=== PATIENT | female | born 1970 | race Caucasian/White ===

== ENCOUNTER 2016-12-20 20:26 | Emergency (ER) | payer OTHER, MEDICAID ==
[2016-12-20 21:42] LABS: % IMMATURE GRANULYOCYTES 0.2 % (0.0-1.1); ABSOLUTE IMMATURE GRANULOCYTES 0.02 10^3/uL (0.00-0.10); ADD DIFF? NO; ADD MORPH? NO; ADD SCAN? NO; ATYPICAL LYMPHOCYTE FLAG 0 (0-99); FRAGMENT RBC FLAG 0 (0-99); HEMATOCRIT 45.7 % (38.0-47.0); HEMOGLOBIN 15.4 g/dL (12.6-16.3); LEFT SHIFT FLG 0 (0-99); LIPEMIA HEMOLYSIS FLAG 80 (0-99); MEAN CELL HEMOGLOBIN 29.7 pg (27.9-34.1); MEAN CELL HEMOGLOBIN CONCENTR. 33.7 g/dL (32.4-36.7); MEAN CELL VOLUME 88.2 fL (81.5-99.8); MEAN PLATELET VOLUME 8.6 fL (8.7-11.7); PLATELET CLUMPS FLAG 0 (0-99); PLATELET COUNT 297 10^3/uL (150-400); RED BLOOD CELL COUNT 5.18 10^6/uL (4.18-5.33); RED CELL DISTRIBUTION WIDTH 14.4 % (11.5-15.2)
--- NOTE | 2016-12-20 21:49 | EDPHY ---
Mental Health General Previous Psychiatric History: previous inpatient psychiatric admission Smoking Status: Never smoked Time Patient Placed on Detainer: 21:30 Time Medically Cleared for Psychiatric Evaluation: 22:00 Time of Transfer of Care: 01:[address] To [address]:: Finesse Course: patient remained stable over course of my shift, no additional interventions Narrative: CHIEF COMPLAINT: suicidal ideations HISTORY OF PRESENT ILLNESS: 46-year-old female presents emergency department complaining of suicidal ideations worsening over the last couple days. Patient reports feeling suicidal in the past. She reports multiple hospitalizations. Patient states she has plans to overdose or shoot herself with her nieces gun who lives in [place]. Patient reports her 1 year ago, she went to his grave today which made her sad and more suicidal. Patient reports auditory and visual hallucinations of her . She states she was staying in a hotel over the last 2 months, she is in the group home [facility]. Patient denies drug and alcohol use. She denies any physical complaints. She reports she wants to burn her mother's house down. REVIEW OF SYSTEMS: A comprehensive 10 point review of systems is otherwise negative aside from elements mentioned in the history of present illness. (Gaby Franco) Medical Decision Makin-Pt awaiting mental health eval. Report passed on to Dr. Kilpatrick at the end of my shift. (Gaby Franco) 0100 care transferred to me from JAMMIE Franco pending mental health evaluation. Patient is on a detain her at this time. 0620 Pt seen by mental health. Pt does not meet criteria for admission. Plan on d/c with bus pass to [facility] in [place] where pt has been treated in past. Will need to await case management. (Harvinder Kilpatrick) 0652: I received signout on this patient at 7AM, From Dr. Kilpatrick, Case Management this morning. Most likely d/c 0755: This patient is requesting be discharged from the emergency room. She has follow-up resources in place. She has a bus pass. I did go and meet with her and speak with her she is not acutely psychotic she has, cooperative resting comfortably. She has no complaints she denies wanting to hurt herself or anybody else she contracts for safety. (Noel Morales) - Objective Vital Signs: Initial Vital Signs Temperature (C) 36.8 C 12/20/16 20:30 Heart Rate 83 12/20/16 20:30 Respiratory Rate 16 12/20/16 20:30 Blood Pressure 121/78 H 12/20/16 20:30 O2 Sat (%) 96 12/20/16 20:30 O2 Delivery Mode Room Air Allergies/Adverse Reactions: acetaminophen [From Vicodin] Allergy (Verified 12/20/16 20:30) aspirin Allergy (Verified 12/20/16 20:30) codeine [Codeine] Allergy (Verified 12/20/16 20:30) hydrocodone bitartrate [From Vicodin] Allergy (Verified 12/20/16 20:30) hydromorphone HCl [From Dilaudid] Allergy (Verified 12/20/16 20:30) Sulfa (Sulfonamide Antibiotics) Allergy (Verified 12/20/16 20:30) Home Medications: Medication Instructions Recorded Ibuprofen [Motrin] 200 mg PO DAILY PRN 01/18/16 Ranitidine HCl [Zantac] 150 mg PO DAILY PRN 01/18/16 Sodium Cl Nasal [Heeney] 1 spray EACHNARE PRN PRN 01/18/16 Escitalopram Oxalate [Lexapro 10 10 mg PO DAILY@1800 #30 tab 02/02/16 MG] Methimazole [Tapazole 5MG (*)] 5 mg PO DAILY #30 tab 02/02/16 clonazePAM [Klonopin (*)] 0.5 mg PO TID #90 tab 02/02/16 Laboratory Results: Laboratory Results 12/20/16 21:28 12/20/16 21:28 12/20/16 12/20/16 12/20/16 21:28 21:28 21:28 WBC 8.02 10^3/uL 10^3/uL (3.80-9.50) RBC 5.18 10^6/uL 10^6/uL (4.18-5.33) Hgb 15.4 g/dL g/dL (12.6-16.3) Hct 45.7 % % (38.0-47.0) MCV 88.2 fL fL (81.5-99.8) MCH 29.7 pg pg (27.9-34.1) MCHC 33.7 g/dL g/dL (32.4-36.7) RDW 14.4 % % (11.5-15.2) Plt Count 297 10^3/uL 10^3/uL (150-400) MPV 8.6 fL L fL (8.7-11.7) Neut % (Auto) 53.0 % % (39.3-74.2) Lymph % (Auto) 35.7 % % (15.0-45.0) [place] % (Auto) 7.5 % % (4.5-13.0) Eos % (Auto) 2.7 % % (0.6-7.6) Baso % (Auto) 0.9 % % (0.3-1.7) Nucleat RBC Rel Count 0.0 % % (0.0-0.2) Absolute Neuts (auto) 4.25 10^3/uL 10^3/uL (1.70-6.50) Absolute Lymphs (auto) 2.86 10^3/uL 10^3/uL (1.00-3.00) Absolute Monos (auto) 0.60 10^3/uL 10^3/uL (0.30-0.80) Absolute Eos (auto) 0.22 10^3/uL 10^3/uL (0.03-0.40) Absolute Basos (auto) 0.07 10^3/uL 10^3/uL (0.02-0.10) Absolute Nucleated RBC 0.00 10^3/uL 10^3/uL (0-0.01) Immature Gran % 0.2 % % (0.0-1.1) Immature Gran # 0.02 10^3/uL 10^3/uL (0.00-0.10) Sodium 139 mEq/L mEq/L (134-144) Potassium 4.2 mEq/L mEq/L (3.5-5.2) Chloride 101 mEq/L mEq/L (97-110) Carbon Dioxide 26 mEq/l mEq/l (22-31) Anion Gap 12 mEq/L mEq/L (8-16) BUN 21 mg/dL mg/dL (7-23) Creatinine 0.8 mg/dL mg/dL (0.6-1.0) Estimated GFR > 60 Glucose 104 mg/dL H mg/dL (70-100) Calcium 9.6 mg/dL mg/dL (8.5-10.4) Beta HCG, Qual NEGATIVE Urine Opiates Screen Urine Barbiturates Ur Phencyclidine Scrn Ur Amphetamine Screen U Benzodiazepines Scrn Urine Cocaine Screen U Marijuana (THC) Screen Ethyl Alcohol < 10 mg/dL mg/dL (0-10) 12/20/16 21:20 WBC RBC Hgb Hct MCV MCH MCHC RDW Plt Count MPV Neut % (Auto) Lymph % (Auto) [place] % (Auto) Eos % (Auto) Baso % (Auto) Nucleat RBC Rel Count Absolute Neuts (auto) Absolute Lymphs (auto) Absolute Monos (auto) Absolute Eos (auto) Absolute Basos (auto) Absolute Nucleated RBC Immature Gran % Immature Gran # Sodium Potassium Chloride Carbon Dioxide Anion Gap BUN Creatinine Estimated GFR Glucose Calcium Beta HCG, Qual Urine Opiates Screen NEGATIVE (NEGATIVE) Urine Barbiturates NEGATIVE (NEGATIVE) Ur Phencyclidine Scrn NEGATIVE (NEGATIVE) Ur Amphetamine Screen NEGATIVE (NEGATIVE) U Benzodiazepines Scrn NEGATIVE (NEGATIVE) Urine Cocaine Screen NEGATIVE (NEGATIVE) U Marijuana (THC) Screen NEGATIVE (NEGATIVE) Ethyl Alcohol Departure - Departure Clinical Impression: Depression Qualifiers: Depression Type: major depressive disorder Major depression recurrence: single episode Active/Remission status: currently active Major depression episode severity: mild Qualified Code(s): F32.0 - Major depressive disorder, single episode, mild Condition: Good Instructions: Depression (ED) Additional Instructions: 1Please return to the emergency room if he develops worsening symptoms includes thoughts of harming herself or somebody else. Referrals: SEAN ALCALA [Other] - As per Instructions
[2016-12-20 21:52] LABS: ANION GAP 12 mEq/L (8-16); CALCIUM 9.6 mg/dL (8.5-10.4); CARBON DIOXIDE 26 mEq/l (22-31); CHLORIDE 101 mEq/L (97-110); CREATININE 0.8 mg/dL (0.6-1.0); ETHANOL SERUM < 10 mg/dL (0-10); GLOMERULAR FILTRATION RATE > 60; GLUCOSE 104 mg/dL (70-100); POTASSIUM 4.2 mEq/L (3.5-5.2); SODIUM 139 mEq/L (134-144)
[2016-12-20 22:41] VITALS: TEMP 97.5
[2016-12-21 08:16] VITALS: BP 130/93; PULSE 92; RESP 18; O2SAT 97
== END 2016-12-21 08:15 | disposition home or self-care (01) ==
DX: F32.0 Major depressive disorder, single episode, mild (principal)
CPT/HCPCS: 80305; G0480